=== PATIENT | female | born 1995 | race Caucasian/White ===

== ENCOUNTER 2016-05-05 23:22 | Emergency (ER) | payer OTHER ==
[~2016-05-05] VITALS: Ht 157.5 cm; Wt 63.5 kg
[2016-05-06] MEDS ORDERED: HYDROmorphone HCL 2 MG/ML VL IV ONE ×2 (02:15→04:00)
[2016-05-06] MEDS ORDERED: ONDANSETRON HCL 4 MG/2 ML VIAL IV ONE (02:15)
[2016-05-06] MEDS ORDERED: TETANUS-DIPTH-ACEL PERTUSSIS 0.5ML SYRG IM ONE (03:30)
[2016-05-06] MEDS ORDERED: cefTRIAXone 1GM/50ML D5W 50 ML IV ONE (04:00)
[2016-05-06 07:30] VITALS: BP 119/76
[2016-05-06] MEDS ORDERED: BACITRACIN TOP OINT 1 UD PKG TOP ONE (07:30)
== END 2016-05-06 11:44 | disposition home or self-care (01) ==
LOC: ER 23:25
DX: S90.511A Abrasion, right ankle, initial encounter (principal); S80.212A Abrasion, left knee, initial encounter; R21 Rash and other nonspecific skin eruption; Z23 Encounter for immunization; X50.1XXA Overexertion from prolonged static or awkward postures, initial encounter; Y93.89 Activity, other specified; Y92.89 Other specified places as the place of occurrence of the external cause; Y99.8 Other external cause status
CPT/HCPCS: 72220; 73562; 73610; 90471; 90715; 96365; 96366; 96375; 96376; 99285; J0696; J1170; J2405